=== PATIENT | male | born 1945 | race Caucasian/White ===

== ENCOUNTER 2016-09-20 15:44 | Inpatient (IN) | payer OTHER, BC ==
[~2016-09-20] VITALS: Ht 182.9 cm; Wt 106.7 kg
[2016-09-20 16:53] LABS: HEMATOCRIT 41.2 % (38.0-50.0); MCH 30.3 PG (29.0-34.0); MCHC 32.8 G/DL (30.0-36.0); MCV 92.4 FL (86-99); MEAN PLAT.VOLUME 10.4 uM^3 (9.0-12.4); PLATELET COUNT 177 K/uL (156-360); RBC DIS.WIDTH-CV 12.8 % (11.8-14.6); RBC DIS.WIDTH-SD 43.3 % (39-53); RED BLOOD COUNT 4.46 M/uL (4.00-5.50); WHITE BLOOD COUNT 19.8 K/uL (4.1-10.2)
[2016-09-20 17:03] LABS: CHLORIDE 104 mEq/L (99-109); POTASSIUM 4.4 mEq/L (3.7-5.4); SODIUM 137 mEq/L (136-147)
[2016-09-20 17:05] LABS: GLUCOSE 163 mg/dL (70-99)
[2016-09-20 17:07] LABS: ANION GAP 11 MEQ/L (2-14); TOTAL BILIRUBIN 0.6 mg/dL (0.0-1.0)
[2016-09-20 17:07] LABS: ADD MIUA? YES; BILIRUBIN NEGATIVE; BLOOD LARGE; COLOR AMBER ((YELLOW)); GLUCOSE (STRIP) NEGATIVE; KETONES NEGATIVE; LEUKOCYTES NEGATIVE; NITRITE NEGATIVE; PROTEIN (STRIP) 100; SPECIFIC GRAVITY 1.029 (1.000-1.030); UROBILINOGEN 0.2 MG/DL (0.2-1.0)
[2016-09-20 17:09] LABS: ALKALINE PHOSPHATASE 73 IU/L (3-129); GFR ESTIMATE (CALCULATED) 49 mL/min/
[2016-09-20 17:10] LABS: UREA NITROGEN (BUN) 28 mg/dL (9-23)
[2016-09-20 17:34] LABS: EPITHELIAL CELLS 1+ /HPF; MUCUS NONE SEEN /LPF
[2016-09-20 17:35] LABS: CASTS NONE SEEN /LPF
[2016-09-20 17:36] LABS: BACTERIA 1+ /HPF; CRYSTALS PRESENT; RED BLOOD CELLS TNTC /HPF (0-5); UCUL ADDED? NO; URIC ACID CRYSTALS 4+ /HPF
[2016-09-20] MEDS ORDERED: LYRICA100 MG PO ×3 (18:42→18:44)
[2016-09-20] MEDS ORDERED: PERCOCET 10/1 TABLET PO (18:42)
[2016-09-20] MEDS ORDERED: ATORVASTATIN CA20 MG PO (18:44)
[2016-09-20] MEDS ORDERED: LO-DOSE ASPIRIN81 M2 PO (18:44)
[2016-09-20 22:20] VITALS: BP 136/74
[2016-09-21 04:27] VITALS: BP 134/68
[2016-09-21 06:23] LABS: EOSINOPHIL (%) 0 % (0-5); HEMATOCRIT 37.3 % (38.0-50.0); IMMATURE GRANULOCYTE (%) 0.7 % (0.0-0.7); IMMATURE GRANULOCYTE COUNT 0.1 K/uL; INSTRUMENT ABS NEUTROPHIL CT 12.7 K/uL; LYMPHOCYTE COUNT 1.1 K/uL (1.0-2.8); MCH 31.3 PG (29.0-34.0); MCHC 33.2 G/DL (30.0-36.0); MCV 94.2 FL (86-99); MEAN PLAT.VOLUME 10.4 uM^3 (9.0-12.4); MONOCYTE (%) 6.7 % (3-12); NEUTROPHIL (%) 85.1 % (45-76); NEUTROPHIL COUNT 12.7 K/uL (1.8-6.4); PLATELET COUNT 159 K/uL (156-360); RBC DIS.WIDTH-CV 13.2 % (11.8-14.6); RBC DIS.WIDTH-SD 45.4 % (39-53); RED BLOOD COUNT 3.96 M/uL (4.00-5.50)
[2016-09-21 06:46] VITALS: BP 133/68
[2016-09-21 06:53] LABS: ANION GAP 6 MEQ/L (2-14); CHLORIDE 105 MEQ/L (99-109); GFR ESTIMATE (CALCULATED) 49 mL/min/; GLUCOSE 125 mg/dL (70-99); POTASSIUM 4.2 MEQ/L (3.7-5.4); SAMPLE HEMOLYSIS CHECK 0; SAMPLE ICTERIC CHECK 0; SAMPLE LIPEMIA CHECK 0; SODIUM 138 MEQ/L (136-147); UREA NITROGEN (BUN) 27 mg/dL (9-23)
[2016-09-21 11:42] VITALS: BP 165/56
[2016-09-21 15:38] VITALS: BP 133/76
[2016-09-21] MEDS ORDERED: CIPRO500 MG PO ×2 (16:07→16:15)
== END 2016-09-21 16:30 | disposition home or self-care (01) | DRG 694 ==
LOC: RME 15:44 → EME 15:44 → EDOF 20:26 → 2EAST 20:26
PROVIDERS: Hospitalist; Physician Assistant
DX: N13.2 Hydronephrosis with renal and ureteral calculous obstruction (principal); N17.9 Acute kidney failure, unspecified; G62.9 Polyneuropathy, unspecified; R00.1 Bradycardia, unspecified; I10 Essential (primary) hypertension; G89.4 Chronic pain syndrome; R73.9 Hyperglycemia, unspecified; M19.90 Unspecified osteoarthritis, unspecified site; Z96.651 Presence of right artificial knee joint; Z87.442 Personal history of urinary calculi; Z87.891 Personal history of nicotine dependence
CPT/HCPCS: 74420; 80048; 80053; 81003; 85025; 85027; 87086; 99281; 99285; C1758; C1769; J0696; J1100; J1170; J1885; J2270; J2405; J3010; J7030; J7050; J7120

== ENCOUNTER → 2016-09-24 | Outpatient (CLI) | payer MEDICARE, BC ==
[~2016-09-24] MED LIST: ATORVASTATIN CA20 MG PO; CIPRO500 MG PO; LO-DOSE ASPIRIN81 M2 PO; LYRICA100 MG PO; PERCOCET 10/1 TABLET PO
== END | disposition home or self-care (01) ==
LOC: CDC 12:15
DX: R00.1 Bradycardia, unspecified (principal); I45.9 Conduction disorder, unspecified; R94.31 Abnormal electrocardiogram [ECG] [EKG]; N20.0 Calculus of kidney
CPT/HCPCS: 93000

== ENCOUNTER 2017-06-20 07:43 | Day surgery (SDC) | payer OTHER, BC ==
[~2017-06-20] VITALS: Ht 182.9 cm; Wt 115.2 kg
[~2017-06-20 07:43] MED LIST changes: -ATORVASTATIN CA20 MG PO; +LIPITOR20 MG PO; +LO-DOSE ASPIRIN81 M1 PO
[2017-06-20 08:42] VITALS: BP 139/77
[2017-06-20 11:50] VITALS: BP 145/85
[2017-06-20 12:45] VITALS: BP 139/69
== END 2017-06-20 13:00 | disposition home or self-care (01) ==
LOC: SDC 07:43
PROVIDERS: Urology
DX: N20.1 Calculus of ureter (principal); I10 Essential (primary) hypertension; K21.9 Gastro-esophageal reflux disease without esophagitis; Z79.82 Long term (current) use of aspirin; Z87.891 Personal history of nicotine dependence
CPT/HCPCS: 74420; 82365 90; 93005; C2625; J0690; J1100; J1580; J2405